=== PATIENT | female | born 1990 | race Caucasian/White ===

== ENCOUNTER → 2016-07-29 | Outpatient (CLI) | payer MEDICAID | LOC: RAD 11:25 | PROVIDERS: ATTEND Orthopaedic Surgery | DX: S99.921A Unspecified injury of right foot, initial encounter (principal); X58.XXXA Exposure to other specified factors, initial encounter | CPT/HCPCS: 78315; A9503; Q9969 ==

== ENCOUNTER → 2016-08-23 | Outpatient (CLI) | payer MEDICAID ==
[2016-08-23 17:12] LABS: ABSOLUTE EOSINOPHILS # (AUTO) 0.2 10^3/uL (0.0-0.6); ABSOLUTE LYMPHOCYTES (AUTO) 1.6 10^3/uL (0.5-4.7); ABSOLUTE MONOCYTES (AUTO) 0.6 10^3/uL (0.1-1.4); ABSOLUTE NEUT (AUTO) 4.5 10^3/uL (1.7-8.2); BASOPHILS % (AUTO) 0.4 % (0-2); EOSINOPHILS % (AUTO) 2.3 % (0-6); HEMATOCRIT 40.9 % (36.0-47.0); HEMOGLOBIN 13.7 g/dL (12.0-15.5); HGB HCT DIFFERENCE 0.2; LYMPHOCYTES % (AUTO) 23.7 % (13-45); MEAN CORPUSCULAR HEMOGLOBIN 28.7 pg (27.0-33.4); MEAN CORPUSCULAR HGB CONC 33.5 g/dL (32.0-36.0); MEAN CORPUSCULAR VOLUME 86 fl (80-97); MONOCYTES % (AUTO) 8.9 % (3-13); RED BLOOD COUNT 4.79 10^6/uL (3.72-5.28); RED CELL DISTRIBUTION WIDTH 13.2 % (11.5-14.0); SEGMENTED NEUTROPHILS % (AUTO) 64.7 % (42-78); WHITE BLOOD COUNT 6.9 10^3/uL (4.0-10.5)
[2016-08-23 17:42] LABS: ALANINE AMINOTRANSFERASE 23 U/L (9-52); ALBUMIN 4.3 g/dL (3.5-5.0); ALKALINE PHOSPHATASE 81 U/L (38-126); ANION GAP 12 (5-19); ASPARTATE AMINO TRANSFERASE 15 U/L (14-36); BILIRUBIN,TOTAL 0.6 mg/dL (0.2-1.3); BLOOD UREA NITROGEN 14 mg/dL (7-20); CALCIUM 9.6 mg/dL (8.4-10.2); CARBON DIOXIDE 26 mmol/L (22-30); CHLORIDE 103 mmol/L (98-107); CREATININE RESULT 0.87 mg/dL (0.52-1.25); GLUCOSE 96 mg/dL (75-110); LIPASE 47.6 U/L (23-300); POTASSIUM 4.6 mmol/L (3.6-5.0); SODIUM 140.9 mmol/L (137-145); TOTAL PROTEIN 7.3 g/dL (6.3-8.2)
== END ==
LOC: OD 16:21
PROVIDERS: ATTEND Nurse Practitioner Acute Care
DX: R10.11 Right upper quadrant pain (principal); R11.2 Nausea with vomiting, unspecified
CPT/HCPCS: 36415; 80053; 83690; 85025

== ENCOUNTER 2016-11-01 14:48 | Emergency (ER) | payer MEDICAID ==
--- NOTE | 2016-11-01 16:24 | ER Document Report ---
ED Medical Screen (RME) - General Chief Complaint: Abdominal Pain Stated Complaint: RIGHT SIDE ABDOMINAL PAIN Time Seen by Provider: 11/01/16 16:21 Mode of Arrival: Ambulatory Information source: Patient Notes: This is a 26-year-old female that presents to the emergency room with right sided mid to lower abdominal pain. Patient does have a history of kidney stones in the past, ovarian cysts and she is currently awaiting a GI evaluation for symptoms very similar to irritable bowel (nausea, vomiting, constipation). Patient denies fever. She does report nausea. She denies vaginal discharge. TRAVEL OUTSIDE OF THE [place] IN LAST 30 DAYS: No - Related Data Allergies/Adverse Reactions: Shellfish * [Shellfish] Allergy (Severe, Verified 11/01/16 16:02) Swelling of Throat latex [Latex] Allergy (Verified 11/01/16 16:02) RASH Penicillins Allergy (Verified 11/01/16 16:02) fish Allergy (Uncoded 11/01/16 16:02) Past Medical History - Past Medical History Cardiac Medical History: Denies: Hx Heart Attack, Hx Hypertension Pulmonary Medical History: Denies: Hx Asthma Neurological Medical History: Reports: Hx Migraine. Denies: Hx Cerebrovascular Accident, Hx Seizures Renal/ Medical History: Denies: Hx Peritoneal Dialysis GI Medical History: Denies: Hx Hepatitis, Hx Hiatal Hernia, Hx Ulcer Psychiatric Medical History: Reports: Hx Anxiety, Hx Depression Infectious Medical History: Denies: Hx Hepatitis Past Surgical History: Reports: Hx Adenoidectomy, Hx Section, Hx Tonsillectomy. Denies: Hx Hysterectomy, Hx Mastectomy, Hx Open Heart Surgery, Hx Pacemaker - Immunizations Hx Diphtheria, Pertussis, Tetanus Vaccination: Yes Physical Exam - Vital signs Vitals: Temp Pulse Resp BP Pulse Ox 98.3 F 58 L 16 106/69 98 11/01/16 15:01 11/01/16 15:01 11/01/16 15:01 11/01/16 15:01 11/01/16 15:01 Course - Vital Signs Vital signs: Temp Pulse Resp BP Pulse Ox 98.3 F 58 L 16 106/69 98 11/01/16 15:01 11/01/16 15:01 11/01/16 15:01 11/01/16 15:01 11/01/16 15:01
[2016-11-01 16:56] LABS: ABSOLUTE BASOPHILS # (AUTO) 0.1 10^3/uL (0.0-0.2); ABSOLUTE EOSINOPHILS # (AUTO) 0.1 10^3/uL (0.0-0.6); ABSOLUTE LYMPHOCYTES (AUTO) 1.9 10^3/uL (0.5-4.7); ABSOLUTE MONOCYTES (AUTO) 0.6 10^3/uL (0.1-1.4); ABSOLUTE NEUT (AUTO) 4.2 10^3/uL (1.7-8.2); BASOPHILS % (AUTO) 0.8 % (0-2); EOSINOPHILS % (AUTO) 1.8 % (0-6); HEMATOCRIT 41.6 % (36.0-47.0); HEMOGLOBIN 13.9 g/dL (12.0-15.5); HGB HCT DIFFERENCE 0.1; LYMPHOCYTES % (AUTO) 27.7 % (13-45); MEAN CORPUSCULAR HEMOGLOBIN 28.9 pg (27.0-33.4); MEAN CORPUSCULAR HGB CONC 33.4 g/dL (32.0-36.0); MEAN CORPUSCULAR VOLUME 87 fl (80-97); MONOCYTES % (AUTO) 9.1 % (3-13); RED BLOOD COUNT 4.81 10^6/uL (3.72-5.28); RED CELL DISTRIBUTION WIDTH 13.2 % (11.5-14.0); SEGMENTED NEUTROPHILS % (AUTO) 60.6 % (42-78); WHITE BLOOD COUNT 6.9 10^3/uL (4.0-10.5)
[2016-11-01 16:58] LABS: APPEARANCE,URINE CLEAR; BILIRUBIN,URINE NEGATIVE (NEGATIVE); GLUCOSE, URINE NEGATIVE (NEGATIVE); KETONES,URINE NEGATIVE (NEGATIVE); LEUKOCYTE ESTERASE,URINE NEGATIVE (NEGATIVE); NITRITE,URINE NEGATIVE (NEGATIVE); PROTEIN,URINE NEGATIVE (NEGATIVE); URINE SPECIFIC GRAVITY 1.012; UROBILINOGEN,URINE NEGATIVE mg/dL (<2.0)
[2016-11-01 17:20] LABS: ALANINE AMINOTRANSFERASE 23 U/L (9-52); ALBUMIN 4.2 g/dL (3.5-5.0); ALKALINE PHOSPHATASE 73 U/L (38-126); ANION GAP 8 (5-19); ASPARTATE AMINO TRANSFERASE 20 U/L (14-36); BILIRUBIN,DIRECT 0.4 mg/dL (0.0-0.4); BILIRUBIN,TOTAL 0.5 mg/dL (0.2-1.3); BLOOD UREA NITROGEN 9 mg/dL (7-20); CALCIUM 9.6 mg/dL (8.4-10.2); CARBON DIOXIDE 26 mmol/L (22-30); CHLORIDE 105 mmol/L (98-107); CREATININE RESULT 0.84 mg/dL (0.52-1.25); GLUCOSE 90 mg/dL (75-110); LIPASE 57.4 U/L (23-300); POTASSIUM 4.7 mmol/L (3.6-5.0); SODIUM 139.4 mmol/L (137-145); TOTAL PROTEIN 7.2 g/dL (6.3-8.2)
[2016-11-01] MEDS ORDERED: KETOROLAC TROMETHAMINE INJ/PF 30 MG/1 ML SDV IV ONE (18:42)
[2016-11-01] MEDS ORDERED: HYOSCYAMINE SULFATE 0.125 MG TABLET PO ONE (18:42)
--- NOTE | 2016-11-01 18:44 | ER Document Report ---
ED General - General Chief Complaint: Abdominal Pain Stated Complaint: RIGHT SIDE ABDOMINAL PAIN Time Seen by Provider: 11/01/16 16:21 Mode of Arrival: Ambulatory Notes: Patient is a 26-year-old female past medical history of anxiety, depression, who presents with 2 months of continual abdominal pain. States the pain is somewhat worse today which prompted her to come to the emergency department. She describes it as a constant, stabbing, sharp pain to her right mid abdomen. Nothing improves or worsens the pain. She notes associated nausea without vomiting. Nothing improves or worsens or symptoms. She has seen her primary care doctor regarding these concerns and had a right upper quadrant ultrasound was noted to be normal. She is scheduled to see the GI physician at the end of the week. Denies any melena, hematochezia, diarrhea, chest pain or shortness of breath. No vaginal bleeding or discharge. TRAVEL OUTSIDE OF THE [place] IN LAST 30 DAYS: No - Related Data Allergies/Adverse Reactions: Shellfish * [Shellfish] Allergy (Severe, Verified 11/01/16 16:02) Swelling of Throat latex [Latex] Allergy (Verified 11/01/16 16:02) RASH Penicillins Allergy (Verified 11/01/16 16:02) fish Allergy (Uncoded 11/01/16 16:02) Past Medical History - General Information source: Patient - Social History Smoking Status: Never Smoker Chew tobacco use (# tins/day): No Frequency of alcohol use: None Drug Abuse: None Family History: CAD, Hypertension Patient has suicidal ideation: No Patient has homicidal ideation: No - Past Medical History Cardiac Medical History: Denies: Hx Heart Attack, Hx Hypertension Pulmonary Medical History: Denies: Hx Asthma Neurological Medical History: Reports: Hx Migraine. Denies: Hx Cerebrovascular Accident, Hx Seizures Renal/ Medical History: Reports: Hx Kidney Stones. Denies: Hx Peritoneal Dialysis GI Medical History: Denies: Hx Hepatitis, Hx Hiatal Hernia, Hx Ulcer Psychiatric Medical History: Reports: Hx Anxiety, Hx Depression Infectious Medical History: Denies: Hx Hepatitis Past Surgical History: Reports: Hx Adenoidectomy, Hx Section, Hx Tonsillectomy. Denies: Hx Hysterectomy, Hx Mastectomy, Hx Open Heart Surgery, Hx Pacemaker - Immunizations Hx Diphtheria, Pertussis, Tetanus Vaccination: Yes Review of Systems - Review of Systems Notes: Constitutional: Negative for fever. HENT: Negative for sore throat. Eyes: Negative for visual changes. Cardiovascular: Negative for chest pain. Respiratory: Negative for shortness of breath. Gastrointestinal: Positive for abdominal pain and nausea. Genitourinary: Negative for dysuria. Musculoskeletal: Negative for back pain. Skin: Negative for rash. Neurological: Negative for headaches, weakness or numbness. 10 point ROS negative except as marked above and in HPI. Physical Exam - Vital signs Vitals: Temp Pulse Resp BP Pulse Ox 98.3 F 58 L 16 106/69 98 11/01/16 15:01 11/01/16 15:01 11/01/16 15:01 11/01/16 15:01 11/01/16 15:01 Interpretation: Normal Notes: PHYSICAL EXAMINATION: GENERAL: Well-appearing, well-nourished and in no acute distress. HEAD: Atraumatic, normocephalic. EYES: Pupils equal round and reactive to light, extraocular movements intact, sclera anicteric, conjunctiva are normal. ENT: nares patent, oropharynx clear without exudates. Moist mucous membranes. NECK: Normal range of motion, supple without lymphadenopathy LUNGS: Breath sounds clear to auscultation bilaterally and equal. No wheezes rales or rhonchi. HEART: Regular rate and rhythm without murmurs ABDOMEN: Soft, mild right midabdominal tenderness, normoactive bowel sounds. No guarding, no rebound. No masses appreciated. EXTREMITIES: Normal range of motion, no pitting or edema. No cyanosis. NEUROLOGICAL: No focal neurological deficits. Moves all extremities spontaneously and on command. PSYCH: Normal mood, normal affect. SKIN: Warm, Dry, normal turgor, no rashes or lesions noted. Course - Re-evaluation Re-evalutation: 11/01/16 18:40 Presentation of left middle abdominal pain that has been constant for the past 2 months. Patient does have some mild tenderness to the right mid and lower abdomen without rebound or guarding. States this is unchanged from the pain that is there chronically. Vitals are normal at the time of arrival. Laboratories are unremarkable without evidence of cystitis, , or leukocytosis. Patient is overall very well in appearance. Based on clinical history and examination I do not suspect an acute appendicitis, tubo-ovarian abscess, related pathology, pelvic inflammatory disease, mesenteric ischemia, or pyelonephritis. She has no lower abdominal tenderness or suprapubic tenderness to suggest a pelvic source. Pelvic exam will therefore be deferred. Patient is already scheduled for a GI evaluation for colonoscopy for consideration of irritable bowel syndrome versus inflammatory bowel disease. Given her history and exam I think this is very appropriate and encouraged her to pursue these studies as recommended by her primary doctor.At this time will discharge with return precautions and follow-up recommendations. Verbal discharge instructions given a the bedside and opportunity for questions given. Medication warnings reviewed. Patient is in agreement with this plan and has verbalized understanding of return precautions and the need for primary care follow-up in the next 24-72 hours. - Vital Signs Vital signs: Temp Pulse Resp BP Pulse Ox 98.1 F 56 L 16 103/67 99 11/01/16 18:55 11/01/16 18:55 11/01/16 18:55 11/01/16 18:55 11/01/16 18:55 - Laboratory Result Diagrams: 11/01/16 16:35 11/01/16 16:35 Discharge - Discharge Clinical Impression: Chronic abdominal pain Condition: Good Disposition: HOME, SELF-CARE Additional Instructions: You have been seen in the Emergency Department (ED) for abdominal pain. Your evaluation did not identify a clear cause of your symptoms but was generally reassuring. Please follow up with your doctor as soon as possible regarding today's emergent visit and the symptoms that are bothering you. Return to the ED if your abdominal pain worsens or fails to improve, you develop bloody vomiting, bloody diarrhea, you are unable to tolerate fluids due to vomiting, fever greater than 101, or other symptoms that concern you. Prescriptions: Hyoscyamine Sulfate [Levsin 0.125 Tablet] 0.125 mg PO Q12 PRN #30 tablet PRN Reason: Forms: Parent Work Note, Return to School Referrals: GLENDA ESPINOZA DO [Primary Care Provider] - Follow up as needed
[2016-11-01 19:00] VITALS: BP 103/67
== END 2016-11-01 19:01 | disposition home or self-care (01) ==
LOC: ER 14:48
DX: G89.29 Other chronic pain (principal); R10.9 Unspecified abdominal pain; R11.0 Nausea; Z91.040 Latex allergy status; Z88.0 Allergy status to penicillin; Z91.013 Allergy to seafood; Z87.442 Personal history of urinary calculi
CPT/HCPCS: 99284; 96374; 36415; 84702; 83690; 85025; 80053; 81001; J3490; J1885

== ENCOUNTER → 2016-11-07 | Outpatient (CLI) | payer MEDICAID | LOC: RAD 08:14 | PROVIDERS: ATTEND Family Medicine | DX: R10.10 Upper abdominal pain, unspecified (principal) | CPT/HCPCS: 78227; A9537; Q9969; J2805 ==

== ENCOUNTER 2016-11-18 08:15 | Day surgery (SDC) | payer MEDICAID ==
[2016-11-18] MEDS ORDERED: DIPHENHYDRAMINE HCL 50 MG/ML VIAL ONE (09:50)
[2016-11-18] MEDS ORDERED: ONDANSETRON HCL INJ/PF 4 MG/2 ML SDV ONE (09:50)
[2016-11-18] MEDS ORDERED: NALOXONE HCL INJ/PF 0.4 MG/1 ML SDV ONE (09:50)
[2016-11-18] MEDS ORDERED: FLUMAZENIL INJ 0.5 MG/5 ML VIAL IV ONE (09:51)
[2016-11-18] MEDS ORDERED: EPINEPHRINE INJ 1 MG/10 ML DISP.SYRIN ONE (09:51)
[2016-11-18] MEDS ORDERED: GLUCAGON,HUMAN RECOMB 1 MG INJ ONE (09:52)
[2016-11-18] MEDS: MIDAZOLAM 2 MG/2 ML INJ ONE ×3 (10:08→10:19)
[2016-11-18] MEDS: FENTANYL CITRATE INJ/PF 100 MCG/2 ML AMPUL ONE ×3 (10:10→10:17)
--- NOTE | 2016-11-18 10:29 | Operative Report ---
Operative Report DATE OF SURGERY: 11/18/16 Operative Report: The risks benefits and alternatives of the procedure explained to the patient in detail and informed consent is obtained. A GIF Olympus video scope was inserted into the patient's mouth and hypopharynx ,the esophagus is identified intubated and insufflated,the scope was then advanced through the esophagus stomach and duodenum, retroflexion maneuver is done, the esophagus stomach and first and second portions of the duodenum examined PREOPERATIVE DIAGNOSIS: Epigastric pain rule out peptic ulcer disease POSTOPERATIVE DIAGNOSIS: Nodular gastritis status post biopsy for Helicobacter pylori OPERATION: EGD with biopsy SURGEON: BRITTNEY BLANCO ANESTHESIA: Moderate Sedation - 6 mg of Versed, 125 mcg of fentanyl. Conscious sedation monitoring time 30 minutes. TISSUE REMOVED OR ALTERED: Gastric specimen obtained COMPLICATIONS: None. ESTIMATED BLOOD LOSS: None. INTRAOPERATIVE FINDINGS: As described above. PROCEDURE: Patient tolerated the procedure well. No immediate postprocedure complications are noted. Patient is discharged in good condition. Discharge date 11/18/2016. Discharge diet: Regular. Discharge activity: Regular. 2-3 week follow-up to discuss findings. Patient is instructed to call the office or proceed to the emergency room should there be any further problems or questions. We will wait on biopsies.
[2016-11-18 12:00] VITALS: BP 108/68
== END 2016-11-18 11:30 | disposition home or self-care (01) ==
LOC: END 08:15
PROVIDERS: ATTEND Internal Medicine Gastroenterology
PROC: 0DB68ZX Excision of Stomach, Via Natural or Artificial Opening Endoscopic, Diagnostic (ICD-10-PCS; principal; 2016-11-18 09:00)
DX: K29.50 Unspecified chronic gastritis without bleeding (principal); D64.9 Anemia, unspecified; G43.909 Migraine, unspecified, not intractable, without status migrainosus; F32.9 Major depressive disorder, single episode, unspecified; Z79.899 Other long term (current) drug therapy; Z88.0 Allergy status to penicillin
CPT/HCPCS: 43239; 88342 ×2; 88305 ×2; J2250; J3010; J2405; J0171; J1200; J1610; J2310; J3490

== ENCOUNTER 2016-12-21 02:40 | Emergency (ER) | payer MEDICAID ==
[2016-12-21 02:51] VITALS: BP 128/84
[2016-12-21] MEDS ORDERED: KETOROLAC TROMETHAMINE INJ/PF 30 MG/1 ML SDV IV ONE (03:06)
[2016-12-21] MEDS ORDERED: ONDANSETRON HCL INJ/PF 4 MG/2 ML SDV IV ONE (03:06)
--- NOTE | 2016-12-21 03:10 | ER Document Report ---
ED General - General Chief Complaint: Abdominal Pain Stated Complaint: ABDOMINAL/BACK PAIN Time Seen by Provider: 12/21/16 02:55 Notes: Patient is a 26-year-old female presents with complaint of pain in her right back that goes around the right flank and into her right lower portion of her abdomen. She says that she feels that her abdomen is visibly swollen on the right side. She denies any injuries or trauma to her abdomen or flank or back. She denies any dysuria. No abnormal vaginal discharge or bleeding. She does have a history of chronic abdominal pain. She has been worked up thoroughly for abdominal pain. She has had recent endoscopy and october which just showed some nodular gastritis but no other concerning findings. She says this pain is in a different location and was a different type of pain. TRAVEL OUTSIDE OF THE [place] IN LAST 30 DAYS: No - Related Data Allergies/Adverse Reactions: Shellfish * [Shellfish] Allergy (Severe, Verified 11/18/16 08:45) Swelling of Throat latex [Latex] Allergy (Verified 11/18/16 08:45) RASH Penicillins Allergy (Verified 11/18/16 08:45) fish Allergy (Uncoded 11/17/16 10:37) Past Medical History - Social History Smoking Status: Unknown if Ever Smoked Frequency of alcohol use: None Drug Abuse: None Family History: CAD, Hypertension Patient has suicidal ideation: No Patient has homicidal ideation: No - Past Medical History Cardiac Medical History: Denies: Hx Coronary Artery Disease, Hx Heart Attack, Hx Hypertension Pulmonary Medical History: Denies: Hx Asthma, Hx Bronchitis, Hx COPD, Hx Pneumonia Neurological Medical History: Reports: Hx Migraine. Denies: Hx Cerebrovascular Accident, Hx Seizures Renal/ Medical History: Reports: Hx Kidney Stones. Denies: Hx Peritoneal Dialysis GI Medical History: Denies: Hx Hepatitis, Hx Hiatal Hernia, Hx Ulcer Musculoskeltal Medical History: Denies Hx Arthritis Psychiatric Medical History: Reports: Hx Anxiety, Hx Depression Infectious Medical History: Denies: Hx Hepatitis Past Surgical History: Reports: Hx Adenoidectomy, Hx Section, Hx Tonsillectomy. Denies: Hx Hysterectomy, Hx Mastectomy, Hx Open Heart Surgery, Hx Pacemaker - Immunizations Hx Diphtheria, Pertussis, Tetanus Vaccination: Yes Review of Systems - Review of Systems Notes: My Normal Review Basic REVIEW OF SYSTEMS: CONSTITUTIONAL : Denies fever, chills, or sweats. Denies recent illness. EENT: Denies eye, ear, throat, or mouth pain or symptoms. Denies nasal or sinus congestion. CARDIOVASCULAR: Denies chest pain. RESPIRATORY: Denies cough, cold, or chest congestion. Denies shortness of breath, difficulty breathing, or wheezing. GASTROINTESTINAL: right sided abdominal pain. Denies nausea, vomiting, or diarrhea. Denies constipation. Last BM: GENITOURINARY: Denies difficulty urinating, painful urination, burning, frequency, or blood in urine. FEMALE GENITOURINARY: Denies vaginal bleeding, abnormal or irregular periods. MUSCULOSKELETAL: Right-sided back pain SKIN: Denies rash or skin lesions. NEUROLOGICAL: Denies altered mental status or loss of consciousness. Denies headache. Denies weakness or paralysis or loss of use of either side. Denies problems with gait or speech. Denies sensory or motor loss. ALL OTHER SYSTEMS REVIEWED AND NEGATIVE. Physical Exam - Vital signs Vitals: Temp Pulse Resp BP Pulse Ox 98 F 65 18 128/84 H 97 12/21/16 02:47 12/21/16 02:47 12/21/16 02:47 12/21/16 02:47 12/21/16 02:47 - Notes Notes: General Appearance: Well nourished, alert, cooperative, no acute distress, mild to moderate obvious discomfort. Vitals: reviewed, See vital signs table. Head: no swelling or tenderness to the head Eyes: PERRL, EOMI, Conjuctiva clear Mouth: No decreasd moisture Lungs: No wheezing, No rales, No rhonci, No accessory muscle use, good air exchange bilaterally. Heart: Normal rate, Regular rythm, No murmur, no rub Abdomen: Normal BS, soft, No rigidity, right lower quadrant and right flank abdominal tenderness, No guarding, no rebound, no abdominal masses, no organomegaly. It and her father feel that her right side of her abdomen is more swollen comparison to the left side. On my visual evaluation her abdomen looks very symmetric and I do not appreciate any swelling. Extremities: strength 5/5 in all extremities, good pulses in all extremities, no swelling or tenderness in the extremities, no edema. Back: Patient is very tender to palpation of her right lower back. Skin: warm, dry, appropriate color, no rash Neuro: speech clear, oriented x 3, normal affect, responds appropriately to questions. Course - Vital Signs Vital signs: Temp Pulse Resp BP Pulse Ox 98 F 65 18 128/84 H 97 12/21/16 02:47 12/21/16 02:47 12/21/16 02:47 12/21/16 02:47 12/21/16 02:47 - Laboratory Result Diagrams: 12/21/16 03:55 12/21/16 03:55 - Transfer of Care Notes: 12/22/16 00:00 Prep was negative. She has no leukocytosis and no fever and she has pain is mostly tender with palpation to her back. I therefore think appendicitis is highly unlikely. I do not see an indication for CT scan at this time. She has no blood in her urine and no signs of infection. I therefore not concerned for kidney stone. On exam she has a lot of pain that is produced with palpation of her back and cause pain that radiates around her side into her front. This suggests that maybe pathology of her pain is from muscular skeletal back pain itself. I will place her on pain medicine for a few days as well as nausea medicine. I informed her that the exact source of her pain is still in 100% clear and therefore she still having pain after 2 days so she should follow-up closely with her doctor or return to the ER for reevaluation. If her pain worsens, she develops fevers, or she has intractable vomiting she needs to return to the ER immediately. Patient agrees with plan and will be discharged home. Dictation of this chart was performed using voice recognition software; therefore, there may be some unintended grammatical errors. Discharge - Discharge Clinical Impression: Back pain Qualifiers: Back pain location: low back pain Chronicity: acute Back pain laterality: right Sciatica presence: without sciatica Qualified Code(s): M54.5 - Low back pain Abdominal pain Qualifiers: Abdominal location: right lower quadrant Qualified Code(s): R10.31 - Right lower quadrant pain Condition: Good Disposition: HOME, SELF-CARE Instructions: Oral Narcotic Medication ([facility]) Additional Instructions: Please return to the ER immediately if you have worsening pain, intractable vomiting, fever,s or feel unwell. Please follow up with your doctor in 2 days for close reevaluation. You blood work and urine were negative for any signs of infection. Your ultrasound did not have any concerning findings. Prescriptions: Promethazine HCl [Phenergan 25 mg Tablet] 1 tab PO Q6H PRN #15 tablet PRN Reason: Promethazine HCl [Phenergan 25 mg Tablet] 1 tab PO Q6H PRN #15 tablet PRN Reason: Forms: Return to School
[2016-12-21 04:18] LABS: ABSOLUTE BASOPHILS # (AUTO) 0.1 10^3/uL (0.0-0.2); ABSOLUTE EOSINOPHILS # (AUTO) 0.2 10^3/uL (0.0-0.6); ABSOLUTE LYMPHOCYTES (AUTO) 3.2 10^3/uL (0.5-4.7); ABSOLUTE MONOCYTES (AUTO) 0.9 10^3/uL (0.1-1.4); ABSOLUTE NEUT (AUTO) 5.7 10^3/uL (1.7-8.2); BASOPHILS % (AUTO) 0.6 % (0-2); EOSINOPHILS % (AUTO) 2.3 % (0-6); HEMATOCRIT 42.9 % (36.0-47.0); HGB HCT DIFFERENCE -0.9; LYMPHOCYTES % (AUTO) 31.5 % (13-45); MEAN CORPUSCULAR HEMOGLOBIN 28.8 pg (27.0-33.4); MEAN CORPUSCULAR HGB CONC 32.8 g/dL (32.0-36.0); MEAN CORPUSCULAR VOLUME 88 fl (80-97); MONOCYTES % (AUTO) 9.2 % (3-13); RED BLOOD COUNT 4.87 10^6/uL (3.72-5.28); RED CELL DISTRIBUTION WIDTH 13.4 % (11.5-14.0); SEGMENTED NEUTROPHILS % (AUTO) 56.4 % (42-78); WHITE BLOOD COUNT 10.1 10^3/uL (4.0-10.5)
[2016-12-21 04:40] LABS: ALANINE AMINOTRANSFERASE 18 U/L (9-52); ALBUMIN 4.1 g/dL (3.5-5.0); ALKALINE PHOSPHATASE 75 U/L (38-126); ANION GAP 12 (5-19); ASPARTATE AMINO TRANSFERASE 15 U/L (14-36); BILIRUBIN,DIRECT 0.3 mg/dL (0.0-0.4); BILIRUBIN,TOTAL 0.3 mg/dL (0.2-1.3); BLOOD UREA NITROGEN 20 mg/dL (7-20); CALCIUM 9.3 mg/dL (8.4-10.2); CARBON DIOXIDE 26 mmol/L (22-30); CHLORIDE 105 mmol/L (98-107); CREATININE RESULT 0.71 mg/dL (0.52-1.25); GLUCOSE 78 mg/dL (75-110); POTASSIUM 4.3 mmol/L (3.6-5.0); SODIUM 142.5 mmol/L (137-145); TOTAL PROTEIN 7.4 g/dL (6.3-8.2)
--- NOTE | 2016-12-21 05:05 | RADIOLOGY REPORT (SQ) ---
EXAM DESCRIPTION: U/S NON OB PEL TV W/DOPPLER COMPLETED DATE/TIME: 12/21/2016 4:47 am REASON FOR STUDY: right lower abdominal pain COMPARISON: 5.14. TECHNIQUE: Dynamic and static grayscale images acquired of the pelvis via transvaginal approach and recorded on PACS. Additional selected color Doppler and spectral images recorded. LIMITATIONS: None. FINDINGS: UTERUS: Contour normal. No mass. ENDOMETRIAL STRIPE: No focal or generalized thickening. No masses. Endometrial atrophy pattern with 0.2 cm thickness. CERVIX: No nabothian cysts. RIGHT OVARY: No abnormal masses. RIGHT OVARY DOPPLER: Normal arterial vascular flow without evidence for torsion. LEFT OVARY: No abnormal masses. LEFT OVARY DOPPLER: Normal arterial vascular flow without evidence for torsion. FREE FLUID: Trace. OTHER: No other significant finding. MEASUREMENTS: UTERUS: 8.7 by 5.9 by 3.6 cm. ENDOMETRIAL STRIPE: 0.2 cm thickness. RIGHT OVARY: 3.4 cm. LEFT OVARY: 2.4 cm. IMPRESSION: Endometrial atrophy pattern. Otherwise, unremarkable. TECHNICAL DOCUMENTATION: JOB ID: [id number]- All Rights Reserved
[2016-12-21] MEDS ORDERED: PROMETHAZINE HCL INJ 50 MG/1 ML VIAL IM ONE (05:28)
[2016-12-21] MEDS ORDERED: NORMAL SALINE 500 ML IV ONE (05:31)
[2016-12-21] MEDS ORDERED: PROMETHAZINE HCL INJ 25 MG/1 ML VIAL ONE (05:39)
[2016-12-21 06:28] LABS: APPEARANCE,URINE SLIGHTLY-CLOUDY; BILIRUBIN,URINE NEGATIVE (NEGATIVE); GLUCOSE, URINE NEGATIVE (NEGATIVE); KETONES,URINE NEGATIVE (NEGATIVE); LEUKOCYTE ESTERASE,URINE NEGATIVE (NEGATIVE); NITRITE,URINE NEGATIVE (NEGATIVE); PROTEIN,URINE NEGATIVE (NEGATIVE); URINE SPECIFIC GRAVITY 1.031; UROBILINOGEN,URINE NEGATIVE mg/dL (<2.0)
[2016-12-21] MEDS ORDERED: HYDROCODONE/ACETAMINOPHEN 5-325 MG 6 TAB/DSPK PO PRN (06:38)
== END 2016-12-21 06:53 | disposition home or self-care (01) ==
LOC: ER 02:40
DX: R10.31 Right lower quadrant pain (principal); M54.5 Low back pain; Z91.013 Allergy to seafood; Z88.0 Allergy status to penicillin; Z91.040 Latex allergy status; Z87.442 Personal history of urinary calculi
CPT/HCPCS: 99284; 96361; 96374; 96375; 36415; 84703; 85025; 80053; 81001; 76830; 93976; J1885; J2550; J2405; J7040

== ENCOUNTER 2017-01-04 17:02 | Emergency (ER) | payer MEDICAID ==
[2017-01-04] MEDS ORDERED: DIPHENHYDRAMINE HCL 50 MG/ML VIAL IV ONE (19:11)
[2017-01-04] MEDS ORDERED: METOCLOPRAMIDE HCL INJ/PF 10 MG/2 ML SDV IV ONE (19:11)
[2017-01-04] MEDS ORDERED: NORMAL SALINE 1000 ML 1,000 ML IV PRN (19:11)
--- NOTE | 2017-01-04 19:14 | ER Document Report ---
ED Medical Screen (RME) - General Chief Complaint: Abdominal Pain Stated Complaint: ABDOMINAL PAIN Time Seen by Provider: 01/04/17 19:10 Mode of Arrival: Ambulatory Information source: Patient TRAVEL OUTSIDE OF THE [place] IN LAST 30 DAYS: No - HPI Patient complains to provider of: n/v Onset: Other - months Onset/Duration: Constant Quality of pain: Cramping Associated Symptoms: Nausea, Vomiting Exacerbated by: Denies Relieved by: Denies Similar symptoms previously: Yes Recently seen / treated by doctor: Yes Notes: 01/04/17 19:13 Patient is a 26-year-old female who has had several months of persistent abdominal pain with nausea and vomiting. Patient's been seen by general surgery as well as gastroenterology for same. No etiology has been found. Patient has been using Phenergan for nausea but is currently out. Patient was seen by her surgeon yesterday. Today, patient states that she is no longer able to even hold down water. Prior to that patient was at least keeping down water but states she could not tolerate foods. She also has chronic abdominal pain for the last several months. No fevers or chills. Denies any urinary complaints. - Related Data Allergies/Adverse Reactions: Shellfish * [Shellfish] Allergy (Severe, Verified 01/04/17 17:19) Swelling of Throat latex [Latex] Allergy (Verified 01/04/17 17:19) RASH Penicillins Allergy (Verified 01/04/17 17:19) fish Allergy (Uncoded 01/04/17 17:19) Past Medical History - General Information source: Patient, [facility] Records - Social History Cigarette use (# per day): No Chew tobacco use (# tins/day): No Frequency of alcohol use: Rare Drug Abuse: None - Past Medical History Cardiac Medical History: Denies: Hx Coronary Artery Disease, Hx Heart Attack, Hx Hypertension Pulmonary Medical History: Denies: Hx Asthma, Hx Bronchitis, Hx COPD, Hx Pneumonia Neurological Medical History: Reports: Hx Migraine. Denies: Hx Cerebrovascular Accident, Hx Seizures Renal/ Medical History: Reports: Hx Kidney Stones. Denies: Hx Peritoneal Dialysis GI Medical History: Denies: Hx Hepatitis, Hx Hiatal Hernia, Hx Ulcer Musculoskeltal Medical History: Denies Hx Arthritis Psychiatric Medical History: Reports: Hx Anxiety, Hx Depression Infectious Medical History: Denies: Hx Hepatitis Past Surgical History: Reports: Hx Adenoidectomy, Hx Section - x3, Hx Tonsillectomy - and adneoids. Denies: Hx Hysterectomy, Hx Mastectomy, Hx Open Heart Surgery, Hx Pacemaker - Immunizations Hx Diphtheria, Pertussis, Tetanus Vaccination: Yes Review of Systems - Review of Systems Gastrointestinal: Abdominal pain, Nausea, Vomiting -: Yes All other systems reviewed and negative Physical Exam - Vital signs Vitals: Temp Pulse Resp BP Pulse Ox 98.5 F 72 16 114/68 99 01/04/17 17:18 01/04/17 17:18 01/04/17 17:18 01/04/17 17:18 01/04/17 17:18 Interpretation: Normal - General General appearance: Appears well, Alert - HEENT Head: Normocephalic, Atraumatic Eyes: Normal Pupils: PERRL - Respiratory Respiratory status: No respiratory distress Chest status: Nontender Breath sounds: Normal Chest palpation: Normal - Cardiovascular Rhythm: Regular Heart sounds: Normal auscultation Murmur: No - Abdominal Inspection: Normal Distension: No distension Bowel sounds: Normal Tenderness: Nontender Organomegaly: No organomegaly - Back Back: Normal, Nontender - Extremities General upper extremity: Normal inspection, Nontender, Normal color, Normal ROM , Normal temperature General lower extremity: Normal inspection, Nontender, Normal color, Normal ROM , Normal temperature, Normal weight bearing. No: Katie's sign - Neurological Neuro grossly intact: Yes Cognition: Normal Orientation: AAOx4 Jerzy Coma Scale Eye Opening: Spontaneous Jerzy Coma Scale Verbal: Oriented Jerzy Coma Scale Motor: Obeys Commands Jerzy Coma Scale Total: 15 Speech: Normal Motor strength normal: LUE, RUE, LLE, RLE Sensory: Normal - Psychological Associated symptoms: Normal affect, Normal mood - Skin Skin Temperature: Warm Skin Moisture: Dry Skin Color: Normal Course - Re-evaluation Re-evalutation: 01/04/17 19:14 Patient with months of symptoms. She is not ill-appearing. Will give her 1 L of normal saline along with some Reglan and Benadryl for vomiting. Will refill her Phenergan along with her antacid medicine that she takes. 01/04/17 20:22 Patient has been smiling and conversant any treatment area with no further vomiting. I discussed the availability of patient's antacid medicine over-the- counter and printed a coupon for her. Will refill her Phenergan. Patient will follow up with her general surgeon as well as gastroenterology. - Vital Signs Vital signs: Temp Pulse Resp BP Pulse Ox 98.5 F 72 16 114/68 99 01/04/17 17:18 01/04/17 17:18 01/04/17 17:18 01/04/17 17:18 01/04/17 17:18 Doctor's Discharge - Discharge Clinical Impression: Vomiting Condition: Good Disposition: HOME, SELF-CARE Instructions: Vomiting ([facility]) Additional Instructions: Follow-up with your general surgeon as well as her mobile electronics installer. Return to the emergency department if worse or for any other problems. Prescriptions: Promethazine HCl [Phenergan 25 mg Tablet] 1 - 2 tab PO Q6H PRN #30 tablet PRN Reason:
[2017-01-04 21:16] VITALS: BP 102/79
== END 2017-01-04 21:03 | disposition home or self-care (01) ==
LOC: ER 17:02
DX: R11.2 Nausea with vomiting, unspecified (principal); R10.9 Unspecified abdominal pain; G89.29 Other chronic pain; Z91.013 Allergy to seafood; Z91.040 Latex allergy status; Z88.0 Allergy status to penicillin; Z79.899 Other long term (current) drug therapy
CPT/HCPCS: 99283; 96361; 96374; 96375; J1200; J2765; J7030

== ENCOUNTER 2017-03-07 21:11 | Emergency (ER) | payer MEDICAID ==
[2017-03-07 22:10] LABS: ABSOLUTE BASOPHILS # (AUTO) 0.1 10^3/uL (0.0-0.2); ABSOLUTE EOSINOPHILS # (AUTO) 0.2 10^3/uL (0.0-0.6); ABSOLUTE LYMPHOCYTES (AUTO) 2.2 10^3/uL (0.5-4.7); ABSOLUTE MONOCYTES (AUTO) 0.7 10^3/uL (0.1-1.4); ABSOLUTE NEUT (AUTO) 4.9 10^3/uL (1.7-8.2); BASOPHILS % (AUTO) 0.8 % (0-2); HEMATOCRIT 39.1 % (36.0-47.0); HEMOGLOBIN 13.3 g/dL (12.0-15.5); HGB HCT DIFFERENCE 0.8; LYMPHOCYTES % (AUTO) 27.5 % (13-45); MEAN CORPUSCULAR HEMOGLOBIN 29.8 pg (27.0-33.4); MEAN CORPUSCULAR HGB CONC 33.9 g/dL (32.0-36.0); MEAN CORPUSCULAR VOLUME 88 fl (80-97); MONOCYTES % (AUTO) 8.6 % (3-13); RED BLOOD COUNT 4.45 10^6/uL (3.72-5.28); RED CELL DISTRIBUTION WIDTH 13.2 % (11.5-14.0); SEGMENTED NEUTROPHILS % (AUTO) 61.1 % (42-78)
[2017-03-07 22:20] LABS: APPEARANCE,URINE CLEAR; BILIRUBIN,URINE NEGATIVE (NEGATIVE); GLUCOSE, URINE NEGATIVE (NEGATIVE); KETONES,URINE NEGATIVE (NEGATIVE); LEUKOCYTE ESTERASE,URINE NEGATIVE (NEGATIVE); NITRITE,URINE NEGATIVE (NEGATIVE); PROTEIN,URINE NEGATIVE (NEGATIVE); UROBILINOGEN,URINE NEGATIVE mg/dL (<2.0)
[2017-03-07 22:28] LABS: ALANINE AMINOTRANSFERASE 22 U/L (9-52); ALBUMIN 4.3 g/dL (3.5-5.0); ALKALINE PHOSPHATASE 60 U/L (38-126); ANION GAP 11 (5-19); ASPARTATE AMINO TRANSFERASE 16 U/L (14-36); BILIRUBIN,DIRECT 0.3 mg/dL (0.0-0.4); BILIRUBIN,TOTAL 0.3 mg/dL (0.2-1.3); BLOOD UREA NITROGEN 14 mg/dL (7-20); CALCIUM 9.5 mg/dL (8.4-10.2); CARBON DIOXIDE 25 mmol/L (22-30); CHLORIDE 105 mmol/L (98-107); CREATININE RESULT 0.94 mg/dL (0.52-1.25); GLUCOSE 92 mg/dL (75-110); LIPASE 106.4 U/L (23-300); POTASSIUM 4.4 mmol/L (3.6-5.0)
[2017-03-07] MEDS ORDERED: PROMETHAZINE HCL INJ 25 MG/1 ML VIAL IM ONE (23:12)
--- NOTE | 2017-03-08 01:30 | ER Document Report ---
ED General - General Chief Complaint: Abdominal Pain Stated Complaint: AABDOMINAL PAIN Time Seen by Provider: 03/07/17 22:54 Notes: Patient is a 26-year-old female presents with complaint of abdominal and back pain. She says she feels that her abdomen is bloated and swelling. She has some nausea and vomiting. No fevers. No diarrhea. No blood in her stool. She has been seen here as well as [facility] for her symptoms. She said she had CT scans [facility]. She also had ultrasounds. She said they showed that she has some hydronephrosis. She has Medicaid and she is went to see her primary care doctor so she can a referral to urology. She comes here because she continues to have the same symptoms and has not yet seen the urologist. She says she was on Percocet and hydrocodone for the pain but these did not work. TRAVEL OUTSIDE OF THE [place] IN LAST 30 DAYS: No - Related Data Allergies/Adverse Reactions: Shellfish * [Shellfish] Allergy (Severe, Verified 03/07/17 21:25) Swelling of Throat latex [Latex] Allergy (Verified 03/07/17 21:25) RASH Penicillins Allergy (Verified 03/07/17 21:25) fish Allergy (Uncoded 03/07/17 21:25) Past Medical History - Social History Smoking Status: Never Smoker Chew tobacco use (# tins/day): No Frequency of alcohol use: Social Drug Abuse: None Family History: CAD, Hypertension Patient has suicidal ideation: No Patient has homicidal ideation: No - Past Medical History Cardiac Medical History: Denies: Hx Coronary Artery Disease, Hx Heart Attack, Hx Hypertension Pulmonary Medical History: Denies: Hx Asthma, Hx Bronchitis, Hx COPD, Hx Pneumonia Neurological Medical History: Reports: Hx Migraine. Denies: Hx Cerebrovascular Accident, Hx Seizures Renal/ Medical History: Reports: Hx Kidney Stones. Denies: Hx Peritoneal Dialysis GI Medical History: Denies: Hx Hepatitis, Hx Hiatal Hernia, Hx Ulcer Musculoskeltal Medical History: Denies Hx Arthritis Psychiatric Medical History: Reports: Hx Anxiety, Hx Depression Infectious Medical History: Denies: Hx Hepatitis Past Surgical History: Reports: Hx Adenoidectomy, Hx Section - x3, Hx Tonsillectomy - and adneoids. Denies: Hx Hysterectomy, Hx Mastectomy, Hx Open Heart Surgery, Hx Pacemaker - Immunizations Hx Diphtheria, Pertussis, Tetanus Vaccination: Yes Review of Systems - Review of Systems Notes: My Normal Review Basic REVIEW OF SYSTEMS: CONSTITUTIONAL : Denies fever, chills, or sweats. Denies recent illness. EENT: Denies eye, ear, throat, or mouth pain or symptoms. Denies nasal or sinus congestion. CARDIOVASCULAR: Denies chest pain. RESPIRATORY: Denies cough, cold, or chest congestion. Denies shortness of breath, difficulty breathing, or wheezing. GASTROINTESTINAL: Some abdominal pain. Some nausea and vomiting. GENITOURINARY: Denies difficulty urinating, painful urination, burning, frequency, or blood in urine. MUSCULOSKELETAL: Denies neck or back pain or joint pain or swelling. SKIN: Denies rash or skin lesions.. NEUROLOGICAL: Denies altered mental status or loss of consciousness. Denies headache. Denies weakness or paralysis or loss of use of either side. Denies problems with gait or speech. Denies sensory or motor loss. ALL OTHER SYSTEMS REVIEWED AND NEGATIVE. Physical Exam - Vital signs Vitals: Temp Pulse Resp BP Pulse Ox 98.6 F 67 20 121/72 100 03/07/17 21:26 03/07/17 21:26 03/07/17 21:26 03/07/17 21:26 03/07/17 21:26 - Notes Notes: General Appearance: Well nourished, alert, cooperative, no acute distress, mild obvious discomfort. Vitals: reviewed, See vital signs table. Head: no swelling or tenderness to the head Eyes: PERRL, EOMI, Conjuctiva clear Mouth: No decreasd moisture Lungs: No wheezing, No rales, No rhonci, No accessory muscle use, good air exchange bilaterally. Heart: Normal rate, Regular rythm, No murmur, no rub Abdomen: Normal BS, soft, No rigidity, mild generalized abdominal tenderness to palpation, No guarding, no rebound, no abdominal masses, no organomegaly. Abdomen does not appear swollen or distended to me. Extremities: strength 5/5 in all extremities, good pulses in all extremities, no swelling or tenderness in the extremities, no edema. Skin: warm, dry, appropriate color, no rash Neuro: speech clear, oriented x 3, normal affect, responds appropriately to questions. Course - Re-evaluation Re-evalutation: 03/08/17 01:44 I spoke with the patient and her at length. The patient when I when the room was resting comfortably but when I woke her up she started complaining of pain still. I will give her a shot of Bentyl as she has never had Bentyl in the past. says that Dilaudid usually works for pain; however, explained to him that Dilaudid will last times not be very beneficial for chronic abdominal pain and that may cause chronic constipation and once it wears off she will oftentimes have a rebound of continued pain. He is understanding of this. I also talked at length about her workup. They said that she is only had both upper GI endoscopy as well as colonoscopy performed by Dr. Caicedo. These were negative. Dr. Bucio referred her to the general surgeon. General surgeon evaluated and reviewed her records and also told her that he does not know why she has chronic recurrent abdominal pain. She has had multiple CT scans and ultrasounds. They said they have all been negative until recently she had some hydronephrosis on ultrasound at [facility]. I repeated this ultrasound here and she no longer has hydronephrosis. I informed him at this time that they need to talk to Marifer about possible referral to an academic center due to her recurrent chronic abdominal pain that we are unable to find etiology for with her testing here. All her laboratory evaluation is completely normal here. Her renal ultrasound once again is normal. I will place her on Bentyl and Phenergan. Encourage him to return to ER if she has fevers, intractable vomiting, or appears unwell. Patient and agree with plan and she will be discharged home. Dictation of this chart was performed using voice recognition software; therefore, there may be some unintended grammatical errors. - Vital Signs Vital signs: Temp Pulse Resp BP Pulse Ox 98.6 F 67 20 121/72 100 03/07/17 21:26 03/07/17 21:26 03/07/17 21:26 03/07/17 21:26 03/07/17 21:26 - Laboratory Result Diagrams: 03/07/17 21:55 03/07/17 21:55 Discharge - Discharge Clinical Impression: Abdominal pain Qualifiers: Abdominal location: generalized Qualified Code(s): R10.84 - Generalized abdominal pain Condition: Good Disposition: HOME, SELF-CARE Additional Instructions: Please return to the ER immediately if you have fevers, intractable vomiting, or blood in your stool. At this time I do not know the exact cause of your chronic recurring abdominal pain. Please follow back up with Dr. Bravo and discuss possible referral to an academic center such as [place] or [facility] being that all the testing that we are able to do here is not showing a cause. I will try Bentyl for her pain as she has not had this in the past and maybe will be helpful. We will also place on Phenergan for nausea. Your kidney ultrasound today showed no evidence of hydronephrosis. Prescriptions: Dicyclomine HCl [Bentyl 20 mg Tablet] 20 mg PO QID #40 tablet Promethazine HCl [Phenergan 25 mg Tablet] 1 tab PO Q6H PRN #15 tablet PRN Reason: Forms: Return to Work
--- NOTE | 2017-03-08 01:33 | RADIOLOGY REPORT (SQ) ---
EXAM DESCRIPTION: U/S RETROPERITON (RENAL/AORTA) COMPLETED DATE/TIME: 03/08/2017 1:12 am REASON FOR STUDY: History of hydronephrosis, abdominal pain COMPARISON: 03/01/2012. TECHNIQUE: Dynamic and static grayscale images acquired of the kidneys and bladder and recorded on P ACS. Additional selected color Doppler and spectral images recorded. LIMITATIONS: None. FINDINGS: RIGHT KIDNEY: Normal size. Normal echogenicity. No solid or suspicious masses. No hydronep hrosis. No calcifications. LEFT KIDNEY: Normal size. Normal echogenicity. No solid or suspicious masses. No hydronephrosis. No calcifications. BLADDER: No masses. Bilateral ureteral jet flow demonstrated. OTHER FINDINGS: No other significant finding. IMPRESSION: NORMAL RENAL AND BLADDER ULTRASOUND. TECHNICAL DOCUMENTATION: JOB ID: [id number] [employer]- All Rights Reserved
[2017-03-08] MEDS ORDERED: DICYCLOMINE HCL INJ 20 MG/2 ML AMPULE IM ONE (01:39)
[2017-03-08 02:01] VITALS: BP 122/70
== END 2017-03-08 02:01 | disposition home or self-care (01) ==
LOC: ER 21:11
DX: R10.84 Generalized abdominal pain (principal); M54.9 Dorsalgia, unspecified; R11.2 Nausea with vomiting, unspecified; Z91.040 Latex allergy status; Z88.0 Allergy status to penicillin; Z91.013 Allergy to seafood; Z87.442 Personal history of urinary calculi
CPT/HCPCS: 99284; 96372; 36415; 83690; 84703; 85025; 80053; 81001; 76770; J0500; J2550

== ENCOUNTER 2017-06-26 22:17 | Emergency (ER) | payer SELFPAY ==
[2017-06-27] MEDS ORDERED: NORMAL SALINE 1000 ML 1,000 ML IV ONE (00:19)
[2017-06-27] MEDS ORDERED: HALOPERIDOL LACTATE INJ 5 MG/1 ML VIAL IV ONE (00:19)
--- NOTE | 2017-06-27 00:34 | ER Document Report ---
ED General - General Chief Complaint: N/V, abdominal pain, migraine Stated Complaint: NAUSEA,VOMITING,FEVER,HEADACHE Time Seen by Provider: 06/26/17 23:53 Notes: Patient is a 26-year-old female with a past medical history of chronic abdominal pain who presents with lower abdominal pain and back pain. Patient states the symptoms have been present for 3 days. She describes it as a constant, cramping, aching pain to the lower abdomen and low back. Nothing improves or worsens this pain. She reports a history of similar pain and her significant other at the bedside acknowledges that she frequently has similar pain. Review of prior records indicates the patient has frequent presentations for abdominal pain with numerous medical imaging studies that have been unremarkable. She has also had an endoscopy and colonoscopy without etiology of her abdominal pain. She denies fever at home, no dysuria, vaginal bleeding, vaginal discharge, vomiting or diarrhea. She has had a section but no additional surgical history in the past. She has not seen her primary doctor regarding today's concerns. TRAVEL OUTSIDE OF THE [place] IN LAST 30 DAYS: No - Related Data Allergies/Adverse Reactions: Shellfish * [Shellfish] Allergy (Severe, Verified 03/07/17 21:25) Swelling of Throat latex [Latex] Allergy (Verified 03/07/17 21:25) RASH Penicillins Allergy (Verified 03/07/17 21:25) fish Allergy (Uncoded 03/07/17 21:25) Past Medical History - General Information source: Patient, Relative - Social History Smoking Status: Never Smoker Frequency of alcohol use: None Drug Abuse: None Lives with: Spouse/Significant other Family History: CAD, Hypertension - Past Medical History Cardiac Medical History: Denies: Hx Coronary Artery Disease, Hx Heart Attack, Hx Hypertension Pulmonary Medical History: Denies: Hx Asthma, Hx Bronchitis, Hx COPD, Hx Pneumonia Neurological Medical History: Reports: Hx Migraine. Denies: Hx Cerebrovascular Accident, Hx Seizures Renal/ Medical History: Reports: Hx Kidney Stones. Denies: Hx Peritoneal Dialysis GI Medical History: Denies: Hx Hepatitis, Hx Hiatal Hernia, Hx Ulcer Musculoskeltal Medical History: Denies Hx Arthritis Psychiatric Medical History: Reports: Hx Anxiety, Hx Depression Infectious Medical History: Denies: Hx Hepatitis Past Surgical History: Reports: Hx Adenoidectomy, Hx Section - x3, Hx Tonsillectomy - and adneoids. Denies: Hx Hysterectomy, Hx Mastectomy, Hx Open Heart Surgery, Hx Pacemaker - Immunizations Hx Diphtheria, Pertussis, Tetanus Vaccination: Yes Review of Systems - Review of Systems Notes: Constitutional: Negative for fever. HENT: Negative for sore throat. Eyes: Negative for visual changes. Cardiovascular: Negative for chest pain. Respiratory: Negative for shortness of breath. Gastrointestinal: Positive for abdominal pain and nausea Genitourinary: Negative for dysuria. Musculoskeletal: Positive for back pain. Skin: Negative for rash. Neurological: Negative for headaches, weakness or numbness. 10 point ROS negative except as marked above and in HPI. Physical Exam - Vital signs Vitals: Temp Pulse Resp BP Pulse Ox 98.3 F 67 18 114/69 100 06/26/17 22:35 06/26/17 22:35 06/26/17 22:35 06/26/17 22:35 06/26/17 22:35 Interpretation: Normal Notes: PHYSICAL EXAMINATION: GENERAL: In a position, seems uncomfortable HEAD: Atraumatic, normocephalic. EYES: Pupils equal round and reactive to light, extraocular movements intact, sclera anicteric, conjunctiva are normal. ENT: nares patent, oropharynx clear without exudates. Moist mucous membranes. NECK: Normal range of motion, supple without lymphadenopathy LUNGS: Breath sounds clear to auscultation bilaterally and equal. No wheezes rales or rhonchi. HEART: Regular rate and rhythm without murmurs ABDOMEN: Soft, patient shifts off the bed before you even touch her lower abdomen. Without even touching her CVA area, she immediately jumps forward. She has no pain on palpation of the upper abdomen. Light palpation of the lower abdomen just palpation of the skin and subcutaneous tissue elicits extreme signs of pain. EXTREMITIES: Normal range of motion, no pitting or edema. No cyanosis. NEUROLOGICAL: No focal neurological deficits. Moves all extremities spontaneously and on command. PSYCH: Anxious SKIN: Warm, Dry, normal turgor, no rashes or lesions noted. Course - Re-evaluation Re-evalutation: 06/27/17 00:30 Presentation of generalized, intermittent abdominal pain. Abdominal exam is benign without any focal tenderness. Vitals are normal at the time of arrival. Laboratories are unremarkable without evidence with the exception of a positive test. Transvaginal ultrasound shows evidence of a 6 week intrauterine . This would account for some of the patient's lower abdominal discomfort as well as her vomiting. Remainder of her labs are otherwise benign without any evidence of acute biliary pathology, pancreatitis, cystitis, acute pyelonephritis, I do not clinically suspect an acute bowel obstruction or bowel perforation. I have informed the patient of her results provided her with follow-up resources. At this time will discharge with return precautions and follow-up recommendations. Verbal discharge instructions given a the bedside and opportunity for questions given. Medication warnings reviewed. Patient is in agreement with this plan and has verbalized understanding of return precautions and the need for primary care follow-up in the next 24-72 hours. - Vital Signs Vital signs: Temp Pulse Resp BP Pulse Ox 98.3 F 67 18 114/69 100 06/26/17 22:35 06/26/17 22:35 06/26/17 22:35 06/26/17 22:35 06/26/17 22:35 - Laboratory Result Diagrams: 06/27/17 00:42 06/27/17 00:42 Laboratory results interpreted by me: 06/27/17 06/27/17 00:42 00:42 Serum HCG, Qual POSITIVE H Ur Leukocyte Esterase MODERATE H - Diagnostic Test Radiology reviewed: Reports reviewed Discharge - Discharge Clinical Impression: Vomiting during Abdominal pain during Qualifiers: Trimester: first trimester Qualified Code(s): O26.891 - Other specified related conditions, first trimester; R10.9 - Unspecified abdominal pain; R10.9 - Unspecified abdominal pain Condition: Good Disposition: HOME, SELF-CARE Additional Instructions: You were seen for abdominal pain during . Your ultrasound and labs are normal today. The exact cause your pain is uncertain but is likely related to your developing baby. Please follow-up with your PRINTER MACHINE in the next 24-48 hours. Return to the emergency department immediately if you have worsening of your pain, have persistent vomiting, develop a fever of greater than 100.4F, begin to have vaginal bleeding, or any other symptoms that are worrisome to you. Referrals: GOLDEN TSAI MD [ACTIVE STAFF] - Follow up in 3-5 days
[2017-06-27 00:56] LABS: ABSOLUTE BASOPHILS # (AUTO) 0.1 10^3/uL (0.0-0.2); ABSOLUTE EOSINOPHILS # (AUTO) 0.2 10^3/uL (0.0-0.6); ABSOLUTE LYMPHOCYTES (AUTO) 2.3 10^3/uL (0.5-4.7); ABSOLUTE MONOCYTES (AUTO) 0.9 10^3/uL (0.1-1.4); ABSOLUTE NEUT (AUTO) 6.9 10^3/uL (1.7-8.2); BASOPHILS % (AUTO) 0.5 % (0-2); EOSINOPHILS % (AUTO) 2.2 % (0-6); HEMOGLOBIN 13.3 g/dL (12.0-15.5); LYMPHOCYTES % (AUTO) 22.1 % (13-45); MEAN CORPUSCULAR HEMOGLOBIN 28.9 pg (27.0-33.4); MEAN CORPUSCULAR HGB CONC 33.2 g/dL (32.0-36.0); MEAN CORPUSCULAR VOLUME 87 fl (80-97); MONOCYTES % (AUTO) 8.2 % (3-13); PLATELET COUNT 196 10^3/uL (150-450); RED BLOOD COUNT 4.59 10^6/uL (3.72-5.28); RED CELL DISTRIBUTION WIDTH 12.9 % (11.5-14.0); TOTAL CELLS COUNTED % (AUTO) 100 %; WHITE BLOOD COUNT 10.4 10^3/uL (4.0-10.5)
[2017-06-27 01:15] LABS: ALANINE AMINOTRANSFERASE 25 U/L (9-52); ALBUMIN 4.1 g/dL (3.5-5.0); ALKALINE PHOSPHATASE 57 U/L (38-126); ANION GAP 9 (5-19); ASPARTATE AMINO TRANSFERASE 23 U/L (14-36); BILIRUBIN,DIRECT 0.3 mg/dL (0.0-0.4); BILIRUBIN,TOTAL 0.3 mg/dL (0.2-1.3); BLOOD UREA NITROGEN 13 mg/dL (7-20); CALCIUM 9.5 mg/dL (8.4-10.2); CARBON DIOXIDE 26 mmol/L (22-30); CHLORIDE 103 mmol/L (98-107); GLUCOSE 82 mg/dL (75-110); LIPASE 88.2 U/L (23-300); POTASSIUM 4.4 mmol/L (3.6-5.0); SODIUM 137.5 mmol/L (137-145); TOTAL PROTEIN 6.9 g/dL (6.3-8.2)
[2017-06-27 01:20] LABS: AMORPHOUS SEDIMENT,URINE TRACE /HPF; APPEARANCE,URINE CLOUDY; BILIRUBIN,URINE NEGATIVE (NEGATIVE); COLOR,URINE YELLOW; GLUCOSE, URINE NEGATIVE (NEGATIVE); KETONES,URINE NEGATIVE (NEGATIVE); LEUKOCYTE ESTERASE,URINE MODERATE (NEGATIVE); NITRITE,URINE NEGATIVE (NEGATIVE); PROTEIN,URINE NEGATIVE (NEGATIVE); UROBILINOGEN,URINE NEGATIVE mg/dL (<2.0)
--- NOTE | 2017-06-27 02:12 | RADIOLOGY REPORT (SQ) ---
EXAM DESCRIPTION: U/S OB TRANSVAG W/DOPPLER CLINICAL HISTORY: 26 years, Female, pelvic pain COMPARISON: None. TECHNIQUE: Transvaginal sonogram. LIMITATIONS: None. FINDINGS: Living intrauterine fetus measures 0.3 cm in crown-rump length corresponding with a gestational age of six weeks and zero days and JOSE of 02/20/2019. Cardiac activity is 116 bpm. Cervical length is 3.1 cm. A 4.6 cm right ovary contains a 2.8 cm corpus luteal cyst; no follow-up imaging of the cyst recommended. 2.6 cm left ovary. No significant free fluid. IMPRESSION: Living intrauterine at 6w 0d. 2010 [employer]- All Rights Reserved
[2017-06-27] MEDS ORDERED: ACETAMINOPHEN 325 MG TABLET PO ONE (02:40)
[2017-06-27] MEDS ORDERED: ONDANSETRON HCL INJ/PF 4 MG/2 ML SDV IV ONE (02:40)
[2017-06-27 03:34] VITALS: BP 121/67
== END 2017-06-27 03:35 | disposition home or self-care (01) ==
LOC: ER 22:17
DX: O21.9 Vomiting of pregnancy, unspecified (principal); O26.891 Other specified pregnancy related conditions, first trimester; R10.84 Generalized abdominal pain; O99.89 Other specified diseases and conditions complicating pregnancy, childbirth and the puerperium; M54.5 Low back pain; Z3A.01 Less than 8 weeks gestation of pregnancy; Z91.013 Allergy to seafood; Z91.040 Latex allergy status; Z88.0 Allergy status to penicillin
CPT/HCPCS: 99284; 96374; 96375; 36415; 84702; 83690; 84703; 85025; 80053; 81001; 76817; 93976; J1630; J2405; J7030

== ENCOUNTER 2018-06-11 22:20 | Emergency (ER) | payer SELFPAY ==
--- NOTE | 2018-06-11 23:18 | ER Document Report ---
ED Medical Screen (RME) - General Chief Complaint: Lower Abdominal Pain Stated Complaint: ABDOMINAL PAIN Time Seen by Provider: 06/11/18 23:15 Notes: Patient is a 19-year-old female presents to the emergency department complaining of "discoloration around my vagina." Patient states she noted this discoloration 2 days ago. Patient also admits to some dysuria and vaginal discharge. Patient states she has generalized lower abdominal pain as well. Patient states she is very nauseated but has not vomited. Past medical history: None Medications: control Allergies: Penicillin, latex, fish Physical examination: In triage patient is unwilling to take her undergarments off. Generalized pain right left lower abdominal pain into the pelvic region. I have greeted and performed a rapid initial assessment of this patient. A comprehensive ED assessment and evaluation of the patient, analysis of test results and completion of the medical decision making process will be conducted by additional ED providers. TRAVEL OUTSIDE OF THE [place] IN LAST 30 DAYS: No - Related Data Allergies/Adverse Reactions: Shellfish * [Shellfish] Allergy (Severe, Verified 03/07/17 21:25) Swelling of Throat latex [Latex] Allergy (Verified 03/07/17 21:25) RASH Penicillins Allergy (Verified 03/07/17 21:25) fish Allergy (Uncoded 03/07/17 21:25) Past Medical History - Past Medical History Cardiac Medical History: Denies: Hx Coronary Artery Disease, Hx Heart Attack, Hx Hypertension Pulmonary Medical History: Denies: Hx Asthma, Hx Bronchitis, Hx COPD, Hx Pneumonia Neurological Medical History: Reports: Hx Migraine. Denies: Hx Cerebrovascular Accident, Hx Seizures Renal/ Medical History: Reports: Hx Kidney Stones. Denies: Hx Peritoneal Dialysis GI Medical History: Denies: Hx Hepatitis, Hx Hiatal Hernia, Hx Ulcer Musculoskeltal Medical History: Denies Hx Arthritis Psychiatric Medical History: Reports: Hx Anxiety, Hx Depression Infectious Medical History: Denies: Hx Hepatitis Past Surgical History: Reports: Hx Adenoidectomy, Hx Section - x3, Hx Tonsillectomy - and adneoids. Denies: Hx Hysterectomy, Hx Mastectomy, Hx Open Heart Surgery, Hx Pacemaker - Immunizations Hx Diphtheria, Pertussis, Tetanus Vaccination: Yes Physical Exam - Vital signs Vitals: Temp Pulse Resp BP Pulse Ox 98.4 F 74 16 123/76 100 06/11/18 22:53 06/11/18 22:53 06/11/18 22:53 06/11/18 22:53 06/11/18 22:53 Course - Vital Signs Vital signs: Temp Pulse Resp BP Pulse Ox 98.4 F 74 16 123/76 100 06/11/18 22:53 06/11/18 22:53 06/11/18 22:53 06/11/18 22:53 06/11/18 22:53
[2018-06-12 02:32] LABS: ABSOLUTE BASOPHILS # (AUTO) 0.1 10^3/uL (0.0-0.2); ABSOLUTE EOSINOPHILS # (AUTO) 0.2 10^3/uL (0.0-0.6); ABSOLUTE MONOCYTES (AUTO) 0.8 10^3/uL (0.1-1.4); ABSOLUTE NEUT (AUTO) 5.8 10^3/uL (1.7-8.2); BASOPHILS % (AUTO) 0.5 % (0-2); EOSINOPHILS % (AUTO) 2.3 % (0-6); HEMATOCRIT 41.6 % (36.0-47.0); HEMOGLOBIN 13.7 g/dL (12.0-15.5); MEAN CORPUSCULAR HEMOGLOBIN 26.7 pg (27.0-33.4); MEAN CORPUSCULAR VOLUME 81 fl (80-97); MONOCYTES % (AUTO) 8.2 % (3-13); PLATELET COUNT 236 10^3/uL (150-450); RED BLOOD COUNT 5.14 10^6/uL (3.72-5.28); RED CELL DISTRIBUTION WIDTH 15.2 % (11.5-14.0); TOTAL CELLS COUNTED % (AUTO) 100 %; WHITE BLOOD COUNT 9.8 10^3/uL (4.0-10.5)
[2018-06-12 02:38] LABS: APPEARANCE,URINE SLIGHTLY-CLOUDY; BILIRUBIN,URINE NEGATIVE (NEGATIVE); COLOR,URINE YELLOW; GLUCOSE, URINE NEGATIVE (NEGATIVE); KETONES,URINE NEGATIVE (NEGATIVE); LEUKOCYTE ESTERASE,URINE MODERATE (NEGATIVE); NITRITE,URINE NEGATIVE (NEGATIVE); PROTEIN,URINE NEGATIVE (NEGATIVE); URINE SPECIFIC GRAVITY 1.021; UROBILINOGEN,URINE NEGATIVE mg/dL (<2.0)
[2018-06-12 02:50] LABS: ALANINE AMINOTRANSFERASE 29 U/L (9-52); ALBUMIN 4.2 g/dL (3.5-5.0); ALKALINE PHOSPHATASE 86 U/L (38-126); ANION GAP 7 (5-19); ASPARTATE AMINO TRANSFERASE 35 U/L (14-36); BILIRUBIN,DIRECT 0.2 mg/dL (0.0-0.4); BILIRUBIN,TOTAL 0.3 mg/dL (0.2-1.3); BLOOD UREA NITROGEN 19 mg/dL (7-20); CALCIUM 9.7 mg/dL (8.4-10.2); CARBON DIOXIDE 27 mmol/L (22-30); CHLORIDE 107 mmol/L (98-107); GLUCOSE 96 mg/dL (75-110); LIPASE 96.2 U/L (23-300); POTASSIUM 4.6 mmol/L (3.6-5.0); SODIUM 140.8 mmol/L (137-145); TOTAL PROTEIN 7.6 g/dL (6.3-8.2)
[2018-06-12] MEDS ORDERED: PROMETHAZINE HCL INJ 25 MG/1 ML VIAL IV ONE (03:09)
[2018-06-12] MEDS ORDERED: MORPHINE SULFATE 10 MG/ML INJ IV ONE (03:13)
--- NOTE | 2018-06-12 03:21 | RADIOLOGY REPORT (SQ) ---
EXAM DESCRIPTION: US TRANSVAGINAL COMPLETED DATE/TME: 06/12/2018 01:57 CLINICAL HISTORY: 27 years Female, r pelvic pain Comparison:06/27/2017 Technique: Transvaginal. LIMITATIONS: None. FINDINGS: 9-cm uterus, 0.9-cm endometrial stripe thickness, 3.2-cm cervical length, 2.9-cm right ovary, and 3.0-cm left ovary appear normal in size, shape, echotexture, and vascularity. Minimal free fluid. IMPRESSION: Normal pelvic sonogram..
[2018-06-12 03:26] LABS: BACTERIA (WET MOUNT) 4+ BACTERIA SEEN; EPITHELIALS (WET MOUNT) 4+ EPITHELIALS SEEN; RBCS (WET MOUNT) NO RBCS SEEN; T.VAGINALIS (WET MOUNT) NO TRICHOMONAS SEEN; WBCS (WET MOUNT) 4+ WBCS SEEN; YEAST (WET MOUNT) BUDDING YEAST SEEN
[2018-06-12] MEDS ORDERED: DOXYCYCLINE HYCLATE 100 MG TABLET PO ONE (03:29)
[2018-06-12] MEDS ORDERED: CEFTRIAXONE INJ 250 MG VIAL IM ONE (03:30)
[2018-06-12] MEDS ORDERED: LIDOCAINE 1% INJ-PF (10 MG/ML) 30 ML SDV INJ ONE (03:30)
[2018-06-12] MEDS ORDERED: METRONIDAZOLE 500 MG TABLET PO ONE (03:32)
--- NOTE | 2018-06-12 03:32 | ER Document Report ---
ED GI/ - General Chief Complaint: Lower Abdominal Pain Stated Complaint: ABDOMINAL PAIN Time Seen by Provider: 06/11/18 23:15 Notes: Patient is a 19-year-old female presents to the emergency department complaining of "discoloration around my vagina." Patient states she noted this discoloration 2 days ago. Patient also admits to some dysuria and vaginal discharge. Patient states she has generalized lower abdominal pain as well. Patient states she is very nauseated but has not vomited. Past medical history: None Medications: control Allergies: Penicillin, latex, fish TRAVEL OUTSIDE OF THE [place] IN LAST 30 DAYS: No - Related Data Allergies/Adverse Reactions: Shellfish * [Shellfish] Allergy (Severe, Verified 03/07/17 21:25) Swelling of Throat latex [Latex] Allergy (Verified 03/07/17 21:25) RASH Penicillins Allergy (Verified 03/07/17 21:25) fish Allergy (Uncoded 03/07/17 21:25) Past Medical History - General Information source: Patient - Social History Smoking Status: Never Smoker Frequency of alcohol use: Social Family History: CAD, Hypertension Patient has suicidal ideation: No Patient has homicidal ideation: No - Past Medical History Cardiac Medical History: Denies: Hx Coronary Artery Disease, Hx Heart Attack, Hx Hypertension Pulmonary Medical History: Denies: Hx Asthma, Hx Bronchitis, Hx COPD, Hx Pneumonia Neurological Medical History: Reports: Hx Migraine. Denies: Hx Cerebrovascular Accident, Hx Seizures Renal/ Medical History: Reports: Hx Kidney Stones. Denies: Hx Peritoneal Dialysis GI Medical History: Denies: Hx Hepatitis, Hx Hiatal Hernia, Hx Ulcer Musculoskeletal Medical History: Denies Hx Arthritis Psychiatric Medical History: Reports: Hx Anxiety, Hx Depression Infectious Medical History: Denies: Hx Hepatitis Past Surgical History: Reports: Hx Adenoidectomy, Hx Section - x3, Hx Tonsillectomy - and adneoids. Denies: Hx Hysterectomy, Hx Mastectomy, Hx Open Heart Surgery, Hx Pacemaker - Immunizations Hx Diphtheria, Pertussis, Tetanus Vaccination: Yes Review of Systems - Review of Systems Constitutional: No symptoms reported EENT: No symptoms reported Cardiovascular: No symptoms reported Respiratory: No symptoms reported Gastrointestinal: See HPI Genitourinary: See HPI Female Genitourinary: See HPI Musculoskeletal: No symptoms reported Skin: See HPI Hematologic/Lymphatic: No symptoms reported Neurological/Psychological: No symptoms reported Physical Exam - Vital signs Vitals: Temp Pulse Resp BP Pulse Ox 98.4 F 74 16 123/76 100 06/11/18 22:53 06/11/18 22:53 06/11/18 22:53 06/11/18 22:53 06/11/18 22:53 - Notes Notes: GENERAL: Alert, interacts well. No acute distress. HEAD: Normocephalic, atraumatic. EYES: Pupils equal, round, and reactive to light. Extraocular movements intact. ENT: Oral mucosa moist, tongue midline. NECK: Full range of motion. Supple. Trachea midline. LUNGS: Clear to auscultation bilaterally, no wheezes, rales, or rhonchi. No respiratory distress. HEART: Regular rate and rhythm. No murmur ABDOMEN: Soft, Non-distended. Bowel sounds present in all 4 quadrants. Generalized tenderness right pelvic suprapubic and left pelvic regions. No right or left lower quadrant pain EXTREMITIES: Moves all 4 extremities spontaneously. No edema, normal radial and dorsalis pedis pulses bilaterally. No cyanosis. BACK: no cervical, thoracic, lumbar midline tenderness. No saddle anesthesia, normal distal neurovascular exam. NEUROLOGICAL: Alert and oriented x3. Normal speech. cranial nerves II through XII grossly intact PSYCH: Normal affect, normal mood. SKIN: Warm, dry, normal turgor. slight darker discoloration noted around vagina and superpubic region under scar. 6 years ago. Course - Re-evaluation Re-evalutation: 06/12/18 03:38 Patient's pelvic exam revealed copious amounts of thick white discharge. Patient also had cervical motion tenderness. No right or left adnexal tenderness. Ultrasound showed no abnormalities to her cervix or bilateral ovaries. Labs revealed no leukocytosis, no signs of anemia, no bump in the patient's liver function tests, no signs of urinary tract infection and the patient is not . Wet mount did reveal bacterial vaginosis, yeast, 4+ white blood cells. Due to cervical motion tenderness will treat for PID as well as bacterial vaginosis and yeast. Gonorrhea and Chlamydia testing pending. After treatments in the emergency room patient does state the pain has somewhat resolved. Patient is no longer vomiting. Patient is non-tachycardic, afebrile , not hypotensive, stable for discharge. - Vital Signs Vital signs: Temp Pulse Resp BP Pulse Ox 98.1 F 82 18 118/69 100 06/12/18 04:09 06/12/18 04:09 06/12/18 04:09 06/12/18 04:09 06/12/18 04:09 - Laboratory Result Diagrams: 06/12/18 02:06 06/12/18 02:06 Laboratory results interpreted by me: 06/12/18 06/12/18 02:06 02:06 MCH 26.7 L RDW 15.2 H Urine Blood SMALL H Ur Leukocyte Esterase MODERATE H Discharge - Discharge Clinical Impression: Pelvic inflammatory disease (PID), Yeast vaginitis, Bacterial vaginosis Condition: Stable Disposition: HOME, SELF-CARE Instructions: Pelvic Inflammatory Disease ([facility]), Vaginal Yeast Infection ([facility]) , Vaginosis, Bacterial ([facility]) Additional Instructions: You have been seen and treated in the emergency department for pelvic inflammatory disease. You should take medications as prescribed. You should follow-up with your primary care provider in the next 24-48 hours. Please take medications with food as they may make you nauseous. Please return to the emergency room for any other concerning symptoms. Prescriptions: Doxycycline Hyclate 100 mg PO BID 14 Days capsule Fluconazole [Diflucan] 150 mg PO ONCE PRN #2 tablet PRN Reason: Metronidazole [Flagyl 500 mg Tablet] 500 mg PO BID 14 Days tablet Ondansetron [Zofran Odt 4 mg Tablet] 1 - 2 tab PO Q4H PRN #15 tab.rapdis PRN Reason: For Nausea/Vomiting
[2018-06-12 04:09] VITALS: BP 118/69
[2018-06-12 04:49] LABS: CHLAM PCR NOT DETECTED (NOT DETECT); GON PCR NOT DETECTED (NOT DETECT)
== END 2018-06-12 04:13 | disposition home or self-care (01) ==
LOC: ER 22:20
DX: N73.9 Female pelvic inflammatory disease, unspecified (principal); N76.0 Acute vaginitis; B96.89 Other specified bacterial agents as the cause of diseases classified elsewhere; B37.3 Candidiasis of vulva and vagina; R10.30 Lower abdominal pain, unspecified; R11.0 Nausea; Z79.3 Long term (current) use of hormonal contraceptives; Z88.0 Allergy status to penicillin; Z91.040 Latex allergy status; Z91.013 Allergy to seafood
CPT/HCPCS: 99284; 96372; 96374; 96375; 36415; 87210; 83690; 85025; 81025; 80053; 81001; 87491; 87591; 76830; 93976; J3490; J2270; J2550; J0696

== ENCOUNTER 2018-12-28 01:31 | Emergency (ER) | payer SELFPAY ==
[2018-12-28] MEDS ORDERED: TETRACAINE HCL 0.5% OPH SOLN 4 ML OD ONE (08:08)
[2018-12-28] MEDS ORDERED: CIPROFLOXACIN HCL 0.3% OPH SOLN 2.5 ML OD ONE (08:23)
--- NOTE | 2018-12-28 08:24 | ER Document Report ---
ED General - General Chief Complaint: Eye Problem Stated Complaint: RIGHT EYE PRESSURE,BLURRED VISION Time Seen by Provider: 12/28/18 06:13 TRAVEL OUTSIDE OF THE [place] IN LAST 30 DAYS: No - HPI Notes: Patient is a 28-year-old female comes in to the emergency department for evaluation of pain and redness in her right eye. She states she woke up with it 2 days ago. She does have seasonal allergies, but denies any enedina recent URIs. No scratches to the area, although she feels as if there is "something in it." She states she feels as if she has a pressure behind the eye. She states today her vision seemed blurry. No fevers. No other acute complaints or concerns. - Related Data Allergies/Adverse Reactions: Shellfish * [Shellfish] Allergy (Severe, Verified 03/07/17 21:25) Swelling of Throat latex [Latex] Allergy (Verified 03/07/17 21:25) RASH Penicillins Allergy (Verified 03/07/17 21:25) fish Allergy (Uncoded 03/07/17 21:25) Past Medical History - General Information source: Patient - Social History Smoking Status: Never Smoker Frequency of alcohol use: Occasional Drug Abuse: None Family History: Reviewed & Not Pertinent, CAD, Hypertension Patient has suicidal ideation: No Patient has homicidal ideation: No - Past Medical History Cardiac Medical History: Denies: Hx Coronary Artery Disease, Hx Heart Attack, Hx Hypertension Pulmonary Medical History: Denies: Hx Asthma, Hx Bronchitis, Hx COPD, Hx Pneumonia Neurological Medical History: Reports: Hx Migraine. Denies: Hx Cerebrovascular Accident, Hx Seizures Renal/ Medical History: Reports: Hx Kidney Stones. Denies: Hx Peritoneal Dialysis GI Medical History: Denies: Hx Hepatitis, Hx Hiatal Hernia, Hx Ulcer Musculoskeletal Medical History: Denies Hx Arthritis Psychiatric Medical History: Reports: Hx Anxiety, Hx Depression Infectious Medical History: Denies: Hx Hepatitis Past Surgical History: Reports: Hx Adenoidectomy, Hx Section - x3, Hx Tonsillectomy - and adneoids. Denies: Hx Hysterectomy, Hx Mastectomy, Hx Open Heart Surgery, Hx Pacemaker - Immunizations Hx Diphtheria, Pertussis, Tetanus Vaccination: Yes Review of Systems - Review of Systems Constitutional: No symptoms reported EENT: See HPI Cardiovascular: No symptoms reported Respiratory: No symptoms reported Gastrointestinal: No symptoms reported Genitourinary: No symptoms reported Female Genitourinary: No symptoms reported Musculoskeletal: No symptoms reported Skin: No symptoms reported Neurological/Psychological: No symptoms reported Physical Exam - Vital signs Vitals: Temp Pulse Resp BP Pulse Ox 98.2 F 78 16 120/72 100 12/28/18 01:39 12/28/18 01:39 12/28/18 01:39 12/28/18 01:39 12/28/18 01:39 - Notes Notes: Patient is a 28-year-old female who appears her stated age in no acute distress. Head is normocephalic and atraumatic. Pupils are equal and round, reactive to light. Examination of the right eye yields a moderate amount of conjunctival injection. No corneal edema. Extraocular movements are intact. Slit-lamp exam is performed. Anterior chamber is clear. Floor seen staining is performed and no clear corneal abrasion is noted. Heart is regular rate and rhythm, lungs clear to oscillation bilaterally. Patient is awake and alert, neuro exam is nonfocal. - HEENT Visual acuity- Right eye: 20/25 Visual acuity- Left eye: 20/25 Visual acuity- Both eyes: 20/25 Corrective lenses worn: No Course - Re-evaluation Re-evalutation: 12/28/18 08:22 Patient presents emergency department for evaluation. Her findings are most consistent with a conjunctivitis. I do not see any abrasions. Her visual acuity in that eye is 20/25. She has normal reactive pupils. At this point I will treat her with antibiotic eyedrops. She is to follow-up with ophthalmology/optometry this week. She voiced understanding this. She is to return to the ED with worsening or new concerning symptoms of any sort. - Vital Signs Vital signs: Temp Pulse Resp BP Pulse Ox 97.7 F 69 18 106/76 100 12/28/18 08:42 12/28/18 08:42 12/28/18 08:42 12/28/18 08:42 12/28/18 08:42 Discharge - Discharge Clinical Impression: Conjunctivitis Qualifiers: Conjunctivitis type: acute Laterality: right Condition: Stable Disposition: HOME, SELF-CARE Instructions: Conjunctivitis ([facility]), Eyedrop Use ([facility]) Additional Instructions: Use drops as instructed for the next week. Instill 1 drop every 2 hours while awake. Follow-up with optometry/ophthalmology this week. If you develop worsening or new concerning symptoms of any sort, return to the ED with worsening or new concerning symptoms.
[2018-12-28 08:44] VITALS: BP 106/76
== END 2018-12-28 08:44 | disposition home or self-care (01) ==
LOC: ER 01:31
DX: H10.9 Unspecified conjunctivitis (principal); Z91.013 Allergy to seafood; Z91.040 Latex allergy status; Z88.0 Allergy status to penicillin
CPT/HCPCS: 99283; J3490 ×2

== ENCOUNTER 2019-01-26 00:53 | Emergency (ER) | payer SELFPAY ==
[2019-01-26] MEDS ORDERED: IBUPROFEN 600 MG TABLET PO ONE (01:37)
[2019-01-26] MEDS ORDERED: FAMOTIDINE 20 MG TABLET PO ONE (01:38)
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
--- NOTE | 2019-01-26 02:04 | RADIOLOGY REPORT (SQ) ---
3 VIEWS OF LEFT ANKLE EXAM DATE: 01/26/2019 1:13 AM CDT HISTORY: Ankle injury.. COMPARISON: None. FINDINGS: The ankle mortise is preserved on these nonstress views. No acute fracture is seen. There is mild surrounding soft tissue swelling. IMPRESSION: No acute fracture or malalignment.
[2019-01-26 02:31] VITALS: BP 91/51
== END 2019-01-26 02:41 | disposition home or self-care (01) ==
LOC: ER 00:53
DX: S99.912A Unspecified injury of left ankle, initial encounter (principal); M25.571 Pain in right ankle and joints of right foot; X50.9XXA Other and unspecified overexertion or strenuous movements or postures, initial encounter; X50.1XXA Overexertion from prolonged static or awkward postures, initial encounter; Y93.01 Activity, walking, marching and hiking
CPT/HCPCS: 99283; 73610; L1902

== ENCOUNTER 2019-08-03 00:01 | Emergency (ER) | payer SELFPAY ==
[2019-08-03] MEDS ORDERED: RINGERS SOLUTION,LACTATED 1,000 ML IV ONE (00:09)
[2019-08-03] MEDS ORDERED: METOCLOPRAMIDE HCL INJ/PF 10 MG/2 ML SDV IV ONE (00:09)
--- NOTE | 2019-08-03 00:13 | ER Document Report ---
ED Medical Screen (RME) - General Chief Complaint: Abdominal Pain Stated Complaint: ABDOMINAL PAIN/FLANK PAIN Time Seen by Provider: 08/03/19 00:05 Mode of Arrival: Ambulatory Information source: Patient Notes: This 29-year-old female approximately 7 weeks with last menstrual period June 10 presents to the emergency department with complaints of nausea and vomiting low back pain abdominal pain. Reports fever this past weekend. Reports she has Phenergan at home but has been unable to keep it down. She reports she has been unable to hold any fluids down for the past 24 hours. Denies vaginal discharge denies vaginal bleeding. Reports she took 3 home test and they were all positive. No care yet, she is waiting for her Medicaid. I have greeted and performed a rapid initial assessment of this patient. A comprehensive ED assessment and evaluation of the patient, analysis of test results and completion of the medical decision making process will be conducted by additional ED providers. TRAVEL OUTSIDE OF THE [place] IN LAST 30 DAYS: No - Related Data Allergies/Adverse Reactions: Shellfish * [Shellfish] Allergy (Severe, Verified 03/07/17 21:25) Swelling of Throat latex [Latex] Allergy (Verified 03/07/17 21:25) RASH Penicillins Allergy (Verified 03/07/17 21:25) fish Allergy (Uncoded 03/07/17 21:25) Past Medical History - Past Medical History Cardiac Medical History: Denies: Hx Coronary Artery Disease, Hx Heart Attack, Hx Hypertension Pulmonary Medical History: Denies: Hx Asthma, Hx Bronchitis, Hx COPD, Hx Pneumonia Neurological Medical History: Reports: Hx Migraine. Denies: Hx Cerebrovascular Accident, Hx Seizures Renal/ Medical History: Reports: Hx Kidney Stones. Denies: Hx Peritoneal Dialysis GI Medical History: Denies: Hx Hepatitis, Hx Hiatal Hernia, Hx Ulcer Musculoskeltal Medical History: Denies Hx Arthritis Psychiatric Medical History: Reports: Hx Anxiety, Hx Depression Infectious Medical History: Denies: Hx Hepatitis Past Surgical History: Reports: Hx Adenoidectomy, Hx Section - x3, Hx Tonsillectomy - and adneoids. Denies: Hx Hysterectomy, Hx Mastectomy, Hx Open Heart Surgery, Hx Pacemaker - Immunizations Hx Diphtheria, Pertussis, Tetanus Vaccination: Yes Physical Exam - Vital signs Vitals: Temp Pulse Resp BP Pulse Ox 98.0 F 86 16 134/65 H 100 08/03/19 00:06 08/03/19 00:06 08/03/19 00:06 08/03/19 00:06 08/03/19 00:06 Course - Vital Signs Vital signs: Temp Pulse Resp BP Pulse Ox 98.0 F 86 16 134/65 H 100 08/03/19 00:06 08/03/19 00:06 08/03/19 00:06 08/03/19 00:06 08/03/19 00:06
[2019-08-03 01:13] LABS: ABSOLUTE BASOPHILS # (AUTO) 0.1 10^3/uL (0.0-0.2); ABSOLUTE EOSINOPHILS # (AUTO) 0.3 10^3/uL (0.0-0.6); ABSOLUTE LYMPHOCYTES (AUTO) 2.3 10^3/uL (0.5-4.7); ABSOLUTE MONOCYTES (AUTO) 1.1 10^3/uL (0.1-1.4); ABSOLUTE NEUT (AUTO) 8.5 10^3/uL (1.7-8.2); BASOPHILS % (AUTO) 0.9 % (0-2); EOSINOPHILS % (AUTO) 2.3 % (0-6); HEMATOCRIT 38.6 % (36.0-47.0); HEMOGLOBIN 13.2 g/dL (12.0-15.5); LYMPHOCYTES % (AUTO) 18.6 % (13-45); MEAN CORPUSCULAR HEMOGLOBIN 27.6 pg (27.0-33.4); MEAN CORPUSCULAR HGB CONC 34.2 g/dL (32.0-36.0); MEAN CORPUSCULAR VOLUME 81 fl (80-97); MONOCYTES % (AUTO) 8.6 % (3-13); PLATELET COUNT 247 10^3/uL (150-450); RED BLOOD COUNT 4.78 10^6/uL (3.72-5.28); RED CELL DISTRIBUTION WIDTH 14.3 % (11.5-14.0); SEGMENTED NEUTROPHILS % (AUTO) 69.6 % (42-78); TOTAL CELLS COUNTED % (AUTO) 100 %; WHITE BLOOD COUNT 12.3 10^3/uL (4.0-10.5)
[2019-08-03 01:32] LABS: ALKALINE PHOSPHATASE 87 U/L (38-126); ANION GAP 7 (5-19); ASPARTATE AMINO TRANSFERASE 19 U/L (14-36); BILIRUBIN,TOTAL 0.2 mg/dL (0.2-1.3); BLOOD UREA NITROGEN 11 mg/dL (7-20); CALCIUM 9.3 mg/dL (8.4-10.2); CARBON DIOXIDE 25 mmol/L (22-30); CHLORIDE 103 mmol/L (98-107); GLUCOSE 91 mg/dL (75-110); POTASSIUM 4.2 mmol/L (3.6-5.0); TOTAL PROTEIN 7.1 g/dL (6.3-8.2)
[2019-08-03 02:23] LABS: APPEARANCE,URINE CLEAR; BILIRUBIN,URINE NEGATIVE (NEGATIVE); COLOR,URINE YELLOW; GLUCOSE, URINE NEGATIVE (NEGATIVE); KETONES,URINE NEGATIVE (NEGATIVE); PROTEIN,URINE NEGATIVE (NEGATIVE); URINE SPECIFIC GRAVITY 1.012; UROBILINOGEN,URINE NEGATIVE mg/dL (<2.0)
--- NOTE | 2019-08-03 03:00 | ER Document Report ---
Entered by GUNJAN BOWDEN SCRIBE 08/03/19 0148 Acting as scribe for:DARNELL BONILLA IV, MD ED GI/ - General Chief Complaint: Flank Pain Stated Complaint: ABDOMINAL PAIN/FLANK PAIN Time Seen by Provider: 08/03/19 00:05 Mode of Arrival: Ambulatory Information source: Patient Notes: This 29-year-old female patient presents to the emergency department today with complaints of lower abdominal pain and associated back pain for the last 24 hours. Patient has had nausea and vomiting as well. Patient is 7 weeks , . Patient states her nausea and vomiting has been relieved with Reglan given in triage. Patient denies any urinary symptoms. TRAVEL OUTSIDE OF THE [place] IN LAST 30 DAYS: No - Related Data Allergies/Adverse Reactions: Shellfish * [Shellfish] Allergy (Severe, Verified 03/07/17 21:25) Swelling of Throat latex [Latex] Allergy (Verified 03/07/17 21:25) RASH Penicillins Allergy (Verified 03/07/17 21:25) fish Allergy (Uncoded 03/07/17 21:25) Home Medications: vitamin Past Medical History - General Information source: Patient - Social History Smoking Status: Never Smoker Cigarette use (# per day): No Lives with: Family Family History: Reviewed & Not Pertinent, CAD, Hypertension Patient has suicidal ideation: No Patient has homicidal ideation: No Neurological Medical History: Reports: Hx Migraine Renal/ Medical History: Reports: Hx Kidney Stones Psychiatric Medical History: Reports: Hx Anxiety, Hx Depression Past Surgical History: Reports: Hx Adenoidectomy, Hx Section - x3, Hx Tonsillectomy - and adneoids - Immunizations Hx Diphtheria, Pertussis, Tetanus Vaccination: Yes Review of Systems - Review of Systems Constitutional: No symptoms reported EENT: No symptoms reported Cardiovascular: No symptoms reported Respiratory: No symptoms reported Gastrointestinal: See HPI, Abdominal pain, Nausea, Vomiting Genitourinary: denies: Burning, Pain Female Genitourinary: See HPI, Musculoskeletal: No symptoms reported Skin: No symptoms reported Hematologic/Lymphatic: No symptoms reported Neurological/Psychological: No symptoms reported -: Yes All other systems reviewed and negative Physical Exam - Vital signs Vitals: Temp Pulse Resp BP Pulse Ox 98.0 F 86 16 134/65 H 100 08/03/19 00:06 08/03/19 00:06 08/03/19 00:06 08/03/19 00:06 08/03/19 00:06 - Notes Notes: Physical Exam: General: Alert, appears uncomfortable. HEENT: Normocephalic. Atraumatic. PERRL. Extraocular movements intact. Oropharynx clear. Neck: Supple. Non-tender. Respiratory: No respiratory distress. Clear and equal breath sounds bilaterally. Cardiovascular: Regular rate and rhythm. Abdominal: Normal Inspection. Non-tender. No distension. Normal Bowel Sounds. Back: No gross abnormalities. Extremities: Moves all four extremities. Upper extremities: Normal inspection. Normal ROM. Lower extremities: Normal inspection. No edema. Normal ROM. Neurological: Normal cognition. AAOx4. Normal speech. Psychological: Normal affect. Normal Mood. Skin: Warm. Dry. Normal color. Course - Re-evaluation Re-evalutation: 08/03/19 04:22 Results of ED MSE discussed with patient. All questions were answered prior to discharge. Emergency signs and symptoms, reasons to return to the emergency department discussed with patient. - Vital Signs Vital signs: Temp Pulse Resp BP Pulse Ox 98.0 F 86 16 134/65 H 100 08/03/19 00:06 08/03/19 00:06 08/03/19 00:06 08/03/19 00:06 08/03/19 00:06 - Laboratory Result Diagrams: 08/03/19 00:50 08/03/19 00:50 Laboratory results interpreted by me: 08/03/19 08/03/19 00:50 00:50 WBC 12.3 H RDW 14.3 H Absolute Neuts (auto) 8.5 H Sodium 135.0 L Beta HCG, Quant 475815.00 H - Diagnostic Test Radiology reviewed: Reports reviewed Discharge - Discharge Clinical Impression: Intrauterine Condition: Good Disposition: HOME, SELF-CARE Additional Instructions: Return to the Emergency Department without delay if any worse. HOME CARE INSTRUCTIONS & INFORMATION: Thank you for choosing us for your medical needs. We hope you're satisfied with the care you received. After you leave, you must properly care for your problem and, at the same time, observe its progress. Any condition can change. Some illnesses can change rapidly over hours or days. If your condition worsens, return to the Emergency Department or see your physician promptly. ABOUT YOUR X-RAYS AND EKG'S: If you had an EKG or X-rays taken, they have been read by the Emergency Physician. The X-rays and EKG's will also be read by a Radiologist or [employer] within 24 hours. If discrepancies are noted, you will be notified by telephone. Please be certain the ED has a correct telephone number & address where you can be reached. Also, realize that some fractures or abnormalities do not show up on initial X-rays. If your symptoms continue, see your physician. ABOUT YOUR LABORATORY TEST: If you had laboratory tests, the results have been reviewed by the Emergency Physician. Some test results (for example cultures) may not be available for several days. You will be contacted if any test result shows you need additional treatment. Please be certain the ED has a correct telephone number and address where you can be reached. ABOUT YOUR MEDICATIONS: You will receive instructions on how to take your medicine on the prescription label you receive. Additional information may be provided by the Pharmacy. If you have questions afterwards, call the ED for clarification or further instructions. Some prescribed medications may cause drowsiness. Do not perform tasks such as driving a car or operating machinery without consulting your Pharmacist. If you feel you need a refill of pain medication, your condition will need re-evaluation. Please do not call for a refill of any medication. ABOUT YOUR SIGNATURE: Signature of this document acknowledges to followin. Understanding that you received emergency treatment and that you may be released before al medical problems are known or treated. Please be certain the ED has a correct phone number & address where you can be reached. 2. Acknowledgement that you will arrange for follow-up care as recommended. 3. Authorization for the Emergency Physician to provide information to your follow-up Physician in order to maximize your care. AT ANY TIME, IF YOUR SYMPTOMS CHANGE SIGNIFICANTLY OR WORSEN OR YOU DEVELOP NEW SYMPTOMS, RETURN TO THE EMERGENCY DEPARTMENT IMMEDIATELY FOR RE-EVALUATION. OUR GOAL IS TO PROVIDE EXCELLENT MEDICAL CARE! WE HOPE THAT WE HAVE MET YOUR EXPECTATIONS DURING YOUR EMERGENCY DEPARTMENT VISIT AND THAT YOU FEEL YOU HAVE RECEIVED EXCELLENT CARE! Prescriptions: Metoclopramide HCl [Reglan 10 mg Tablet] 10 mg PO QIDP PRN #15 tablet PRN Reason: nausea Forms: Return to Work Referrals: VIRGINIA PATEL MD [ACTIVE STAFF] - 08/05/19 (call for appointment) I personally performed the services described in the documentation, reviewed and edited the documentation which was dictated to the scribe in my presence, and it accurately records my words and actions.
--- NOTE | 2019-08-03 03:26 | RADIOLOGY REPORT (SQ) ---
EXAM DESCRIPTION: US TRANSVAGINAL COMPLETED DATE/TME: 08/03/2019 00:09 CLINICAL HISTORY: 29 years, Female, seven week with low back, abd pain; hCG 106,660 COMPARISON: None. TECHNIQUE: Transvaginal OB ultrasound was performed. FINDINGS: The uterus measures 10.6 x 5.5 x 7.5 cm. The cervix is closed and measures 3.5 cm in length. The left ovary measures 2.6 x 2.4 x 2.5 cm with normal color flow. The right ovary measures 2.7 x 1.8 x 1.8 cm with normal color flow. No adnexal masses or free fluid collections are seen. There is an intrauterine gestational sac containing a yolk sac and pole. The mean gestational sac diameter gives an EGA of 8 weeks 6 days. The crown-rump length of 1.49 cm gives an EGA of 8 weeks 0 days. heart tones are measured at 160 bpm. The yolk sac measures about 0.33 cm in diameter. The clinical age is 7 weeks 5 days. IMPRESSION: Single viable intrauterine with an EGA by ultrasound of 8 weeks 0 days giving an EDC on 03/14/2020.
[2019-08-03 04:47] VITALS: BP 109/64
== END 2019-08-03 04:40 | disposition home or self-care (01) ==
LOC: ER 00:01
DX: O21.9 Vomiting of pregnancy, unspecified (principal); O26.891 Other specified pregnancy related conditions, first trimester; R10.9 Unspecified abdominal pain; R10.30 Lower abdominal pain, unspecified; M54.9 Dorsalgia, unspecified; Z3A.01 Less than 8 weeks gestation of pregnancy; Z88.0 Allergy status to penicillin; Z88.8 Allergy status to other drugs, medicaments and biological substances
CPT/HCPCS: 99284; 96361; 96374; 36415; 84702; 85025; 80053; 81001; 76817; J2765; J7120

== ENCOUNTER 2019-09-01 04:23 | Emergency (ER) | payer SELFPAY ==
[2019-09-01 04:33] VITALS: BP 122/74
== END 2019-09-01 06:34 | disposition left against medical advice (07) ==
LOC: ER 04:23
DX: Z53.21 Procedure and treatment not carried out due to patient leaving prior to being seen by health care provider (principal)